=== PATIENT | male | born 1975 | race Caucasian/White ===

== ENCOUNTER 2020-04-04 15:08 | Observation (INO) | payer SELFPAY ==
--- NOTE | ~2020-04-04 | CT_ITS ---
EXAMINATION: CT abdomen pelvis w con DATE: 04/04/2020 20:51 INDICATION: Pelvic abscess. TECHNIQUE: Computed tomography (CT) of the abdomen and pelvis was performed with 100 mL Omnipaque 350 intravenous contrast. Automated exposure control and iterative reconstruction technique were employe d. The dose-length product was 3528 mGy-cm. COMPARISON: None. FINDINGS: The visualized portions of the lung bases are clear without pneumonia or pleural effusion. There is a pneumatocele in left lower lobe. The heart size is normal. No pericardial effusion. The li mio, gallbladder, spleen, pancreas, adrenal glands, and kidneys are normal. There are no dilated loop s of bowel. The appendix is normal. There is subcutaneous fat stranding and skin thickening involving the anterior perineum, consistent with cellulitis. No abscess. There are no pathologically enlarged lymph nodes. There is no free intraperitoneal fluid. There is mild thoracic spondylosis. IMPRESSION: 1. Subcutaneous cellulitis involving the anterior perineum. No abscess. Reviewed, dictated and finalized at location A. NOLOGY TEACHER
[2020-04-04 16:10] VITALS: BP 129/78; PULSE 91; RESP 18; TEMP 36.3; O2SAT 99
[2020-04-04 16:26] LABS: Hematocrit 44.6 % (42.0-52.0); Hemoglobin 15.3 g/dL (14.0-18.0); Mean Corpuscular HGB Conc 34.3 g/dl (32-36); Mean Corpuscular Hemoglobin 30.1 pg (26-34); Mean Corpuscular Volume 87.8 fl (80-100); Platelet Count Result 245 k/mm3 (150-375); Red Blood Count 5.08 M/mm3 (4.6-6.20); Red Cell Distribution Width 13.1 % (11.5-14.5); White Blood Count 21.4 K/mm3 (4.5-10.0)
[2020-04-04 16:37] LABS: Alanine Aminotransferase 26 U/L (4-50); Albumin Level 4.2 g/dL (3.5-5.1); Alkaline Phosphatase 93 U/L (38-126); Anion Gap 7 mmol/L (8-16); Aspartate Amino Transferase 21 U/L (17-59); Bilirubin,Total 0.6 mg/dL (0.2-1.3); Blood Urea Nitrogen 10 mg/dL (9-20); Calcium 9.2 mg/dL (8.4-10.2); Carbon Dioxide 26 mmol/L (22-30); Chloride 99 mmol/L (98-107); Estimated CRCL calculation 202 ml/min; Estimated Glomerular Filt Rate > 60; Glucose 181 mg/dL (75-110); Potassium 4.2 mmol/L (3.4-5.0); Sodium 132 mmol/L (137-145)
[2020-04-04 16:38] LABS: Band Neutrophils Percent 2 % (0-6); Lymphocytes Absolute Manual 3.21 K/mm3 (1.1-4.5); Monocytes Absolute Manual 1.07 K/mm3 (0.1-0.90); Monocytes Percent Manual 5 % (3-9); Neutrophils Absolute Manual 17.12 K/mm3 (1.3-6.7); Neutrophils Percent Manual 78 % (46-73); Total Cells Counted 100
[2020-04-04 16:39] LABS: Atypical Lymphocytes Present; Platelet Estimate Adequate (Adequate)
--- NOTE | 2020-04-04 20:06 | PC.NURSE ---
edema above the penis are 5x10 with tinge drainage
[2020-04-04 20:15] VITALS: BP 148/64; PULSE 94; RESP 20; O2SAT 96
[2020-04-04 20:17] LABS: Lactic Acid Reflex 0.9 mmol/L (0.7-2.1)
--- NOTE | 2020-04-04 20:58 | ED.GENADULT ---
HPI - General Adult General Chief complaint: Urogenital-Male <Piper Mares PA-C - Last Filed: 04/14/20 10:26> Stated complaint: swelling/redness to testicles <Piper Mares PA-C - Last Filed: 04/14/20 10:26> Time Seen by Provider: 04/04/20 19:04 <Piper Mares PA-C - Last Filed: 04/14/20 10:26> Source: patient <RUMA Sheikh Last Filed: 04/14/20 10:26> Mode of arrival: ambulatory <RUMA Sheikh Last Filed: 04/14/20 10:26> Limitations: no limitations <RUMA Sheikh Last Filed: 04/14/20 10:26> History of Present Illness HPI narrative: Patient presents with chief complaint of erythema, pain and drainage to his mons pubis intermittently over the past week. Patient states he has noticed more erythema and swelling and pain to the area. He states he has been draining from under his abdomen intermittently for a week. He states it is not draining any days ago and has since grown in size. Patient is evaluated. Patient states that he states he has had a large abscess to his scrotum in the past which was drained by urology. He states he has not had any fevers or chills, nausea or vomiting. Patient states that he is a smoker. Patient denies chest pain or shortness of breath. <Piper Mares PA-C - Last Filed: 04/14/20 10:26> Related Data Allergies/adverse reactions: Allergies Allergy/AdvReac Type Severity Reaction Status Date / Time No Known Allergies Allergy Verified 04/04/20 16:13 <Piper Mares PA-C - Last Filed: 04/14/20 10:26> Review of Systems Review of Systems: Narrative: CONSTITUTIONAL: Denies fever, chills, or sweats. EYES: Denies visual changes, redness, or discharge. ENT: Denies rhinorrhea, congestion, sore throat, or otalgia. CARDIOVASCULAR: Denies chest pain, palpitations, or edema. RESPIRATORY: Denies cough or dyspnea. GASTROINTESTINAL: Denies abdominal pain, nausea, vomiting, or diarrhea. GENITOURINARY: Denies dysuria or hematuria. SKIN: Reports abscess denies rash or itching. MUSCULOSKELETAL: Denies back pain, joint pain, or myalgia. NEUROLOGIC: Denies headache, numbness, dizziness, or weakness. PSYCHIATRIC: Denies anxiety or depression. <Piper Mares PA-C - Last Filed: 04/14/20 10:26> [facility] Past Medical History Medical History: Medical History (Updated 04/06/20 @ 12:56 by Delisa Santiago PA-C) Marijuana use Morbid obesity Tobacco dependence Type 2 diabetes mellitus <Piper Mares PA-C - Last Filed: 04/14/20 10:26> Surgical History Surgical History: Surgical History Hx of appendectomy <Piper Mares PA-C - Last Filed: 04/14/20 10:26> Social History Social History: Social History (Updated 04/05/20 @ 17:10 by Delisa Santiago PA-C) Social History: Mr. Mina lives in [place] with his mother and son. He works for [employer]. He smokes 2 packs of cigarettes per day and states that he has done so for 20 years. He smokes approximately 2 grams of marijuana per day. He drinks alcohol once every 2 months and last drank on . He wishes to be a full code and he designates his mom, Debbie Mina, as his surrogate medical decision maker. Smoking packs per day: 2 Smoking cigarettes per day: 40.0 Years smoked: 20 Smoking pack-years: 40.00 Smoking status: Former smoker Tobacco type: cigarettes Substance use: current Substance use type: marijuana Other substance usage details: Pt admits to smoking approximately 2 grams of marijuana per day Living arrangements: with family Gender identity (if verbalized by the patient): Male Spiritual care concerns: No <Piper Mares PA-C - Last Filed: 04/14/20 10:26> Exam Narrative: Exam Narrative: GENERAL: Well-appearing, well-nourished, and in no acute distress. Morbidly obese. HEAD: Normocephalic, atraumatic. EYES: PERRLA and EOMI. C
[2020-04-04 21:30] VITALS: BP 126/51; PULSE 98; RESP 20; O2SAT 96
[2020-04-04 22:57] VITALS: BP 148/64; PULSE 92; RESP 20; O2SAT 96
[2020-04-05 00:17] VITALS: BP 118/52; PULSE 98; RESP 20; O2SAT 97
[2020-04-05 00:29] LABS: Glucose Point of Care 262 (65-105)
--- NOTE | 2020-04-05 01:34 | PC.NURSE ---
dr lewis verbal d/c the iv roceph
[2020-04-05] MEDS: SODIUM CHLORIDE 0.9% IV 1,000 ML 125 ML IV CONT ×2 (01:40→12:21)
[2020-04-05 06:00] VITALS: BP 125/58; PULSE 92; RESP 20; TEMP 37.5; O2SAT 96
[2020-04-05 06:03] LABS: Basophils Absolute Auto 0.1 K/mm3 (0.0-0.1); Basophils Percent Auto 0.6 % (0.2-1.2); Eosinophils Absolute Auto 0.2 K/mm3 (0-0.3); Hematocrit 43.1 % (42.0-52.0); Immature Granulocyte Absolute 0.12 K/mm3 (0.00-0.031); Immature Granulocyte Percent A 0.8 % (0-0.5); Lymphocytes Absolute Auto 1.84 K/mm3 (0.9-3.2); Lymphocytes Percent Auto 11.7 % (18.3-44.2); Mean Corpuscular HGB Conc 32.5 g/dl (32-36); Mean Corpuscular Hemoglobin 28.7 pg (26-34); Mean Corpuscular Volume 88.3 fl (80-100); Mean Platelet Volume 9.4 fl (7.4-10.4); Monocytes Absolute Auto 1.3 K/mm3 (0.1-0.6); Neutrophils Absolute Auto 12.2 K/mm3 (1.3-6.7); Neutrophils Percent Auto 77.9 % (45.5-73.1); Platelet Count Result 219 k/mm3 (150-375); Red Blood Count 4.88 M/mm3 (4.6-6.20); White Blood Count 15.7 K/mm3 (4.5-10.0)
[2020-04-05 06:15] LABS: Estimated CRCL calculation 181 ml/min; Estimated Glomerular Filt Rate > 60
[2020-04-05 07:45] LABS: Glucose Point of Care 207 (65-105)
[2020-04-05 11:18] LABS: Anion Gap 9 mmol/L (8-16); Blood Urea Nitrogen 11 mg/dL (9-20); Calcium 8.7 mg/dL (8.4-10.2); Carbon Dioxide 22 mmol/L (22-30); Chloride 103 mmol/L (98-107); Estimated CRCL calculation 181 ml/min; Estimated Glomerular Filt Rate > 60; Glucose 206 mg/dL (75-110); Sodium 134 mmol/L (137-145)
[2020-04-05 11:58] LABS: Glucose Point of Care 275 (65-105)
[2020-04-05 14:00] VITALS: BP 134/65; PULSE 92; RESP 22; TEMP 36.6; O2SAT 99
--- NOTE | 2020-04-05 14:25 | PM.IMHP ---
H&P: HPI History of Present Illness Date/Time: 04/05/20 14:25 Chief Complaint: Skin infection in perineal area Narrative: Ranjan Mina is a 44 year old male with PMH significant for type 2 diabetes mellitus, hx of scrotal abscess, current tobacco dependence with 40 pack-year smoking history, and marijuana dependence who presented to the emergency department 04/04/20 for the evaluation of perineal swelling. He reported that he noticed a small area of swelling and erythema in the perineal area, just below the abdominal pannus, 1 week ago. He took 6 days of keflex that he had leftover at home without improvement. This progressively worsened, extending to cover the whole region of the mons pubis with significant swelling, erythema, and warmth. He noted associated fatigue, fever, and chills. Yesterday, the area started draining purulent and malodorous material from the abdominal fold. The pain worsened which prompted him to proceed to the emergency department. The area is sore and he describes the discomfort as a dull ache. He reports no scrotal swelling or pain and no penile discharge. He has no voiding complaints. He states that his blood sugars tend to run in the 200s at home. He admits that his diet is very poor. He knows that he needs to work on modifying his diet and work towards weight loss. Initial vitals on arrival to the emergency department were stable. WBC was markedly elevated at 21,400 with neutrophil predominance. Lactic acid was normal at 0.9. Sodium was 132. CT abdomen/pelvis demonstrated subcutaneous fat stranding and skin thickening of the anterior perineum consistent with cellulitis without abscess. Blood cultures were obtained and he was treated with IV vancomycin, imipenem, and cefazolin and admitted to the hospitalist service for cellulitis. Today, he notes that the swelling is much better. He still has a bit of pain and thinks this may be a bit worse. Review of Systems Review of Systems: Narrative: Constitutional: Reports fever and chills which abated on Thursday. Reports fatigue. Denies appetite change and reports that his diet is poor and he needs to work on weight loss. Eyes: Denies vision change. No additional eye complaints. ENT: Denies change in hearing, nasal congestion, dysphagia, odynophagia, and sore throat. Cardiovascular: Denies palpitations and chest pain. Denies PND and orthopnea. Denies dyspnea on exertion. Respiratory: Denies cough and shortness of breath. Gastrointestinal: Denies abdominal pain, nausea, and vomiting. Genitourinary: Denies dysuria, frequency, urgency, and hesitancy. Denies penile discharge. Denies scrotal swelling. Musculoskeletal: Denies joint pain and swelling. Denies muscle cramps and weakness. Skin: As above. Neurologic: Denies focal weakness, paresthesias, confusion, and speech change. Endo: Reports frequent thirst. Psychiatric: Denies mood change. Hematologic: Denies easy bruising and bleeding. All systems reviewed & are unremarkable except as noted in HPI and below PMFSH Past Medical History Medical History (Updated 04/05/20 @ 17:15 by Delisa Santiago PA-C) Marijuana use Tobacco dependence Type 2 diabetes mellitus Surgical History Surgical History Hx of appendectomy Social History Social History (Updated 04/05/20 @ 17:10 by Delisa Santiago PA-C) Social History: Mr. Mina lives in [place] with his mother and son. He works for [employer]. He smokes 2 packs of cigarettes per day and states that he has done so for 20 years. He smokes approximately 2 grams of marijuana per day. He drinks alcohol once every 2 months and last drank on . He wishes to be a full code and he designates his mom, Debbie Mina, as his surrogate medical decision maker. Smoking packs per day: 2 Smoking cigarettes per day: 40.0 Years smoked: 20 Smoking pack-years: 40.00 Tobacco type: ci
[2020-04-05 16:45] LABS: Glucose Point of Care 220 (65-105)
--- NOTE | 2020-04-05 17:43 | PC.NURSE ---
Left message for inclusion paraeducator.
[2020-04-05] MEDS: INSULIN ASPART (*BKC) 100 UNITS/ML SUB-Q (18:05)
[2020-04-05] MEDS: ENOXAPARIN 40 MG/0.4 ML SYRINGE SUB-Q (20:02)
[2020-04-05 20:17] LABS: Glucose Point of Care 340 (65-105)
[2020-04-05 21:19] VITALS: BP 134/61; PULSE 95; RESP 18; TEMP 37.7; O2SAT 95
[2020-04-05 22:14] LABS: Glucose Point of Care 364 (65-105)
[2020-04-05 22:22] VITALS: TEMP 37.2
[2020-04-05] MEDS: INSULIN ASPART (*BKC) 100 UNITS/ML 6 UNITS SUB-Q (22:27)
[2020-04-06] MEDS: SODIUM CHLORIDE 0.9% IV 1,000 ML 125 ML IV CONT (02:08)
[2020-04-06 06:00] VITALS: BP 152/84; PULSE 86; RESP 18; TEMP 36.4; O2SAT 95
[2020-04-06 07:54] LABS: Glucose Point of Care 189 (65-105)
[2020-04-06 08:13] LABS: Basophils Absolute Auto 0.1 K/mm3 (0.0-0.1); Basophils Percent Auto 0.5 % (0.2-1.2); Eosinophils Absolute Auto 0.2 K/mm3 (0-0.3); Eosinophils Percent Auto 1.5 % (0-4.4); Hematocrit 42.8 % (42.0-52.0); Hemoglobin 14.1 g/dL (14.0-18.0); Immature Granulocyte Absolute 0.07 K/mm3 (0.00-0.031); Immature Granulocyte Percent A 0.5 % (0-0.5); Lymphocytes Absolute Auto 1.71 K/mm3 (0.9-3.2); Lymphocytes Percent Auto 12.8 % (18.3-44.2); Mean Corpuscular HGB Conc 32.9 g/dl (32-36); Mean Corpuscular Volume 87.9 fl (80-100); Mean Platelet Volume 9.4 fl (7.4-10.4); Monocytes Absolute Auto 0.9 K/mm3 (0.1-0.6); Monocytes Percent Auto 6.9 % (2.6-8.5); Neutrophils Absolute Auto 10.4 K/mm3 (1.3-6.7); Neutrophils Percent Auto 77.8 % (45.5-73.1); Platelet Count Result 228 k/mm3 (150-375); Red Blood Count 4.87 M/mm3 (4.6-6.20); Red Cell Distribution Width 12.9 % (11.5-14.5); White Blood Count 13.4 K/mm3 (4.5-10.0)
[2020-04-06 08:32] LABS: Anion Gap 4 mmol/L (8-16); Blood Urea Nitrogen 9 mg/dL (9-20); Calcium 8.7 mg/dL (8.4-10.2); Carbon Dioxide 26 mmol/L (22-30); Chloride 106 mmol/L (98-107); Estimated CRCL calculation 228 ml/min; Estimated Glomerular Filt Rate > 60; Glucose 192 mg/dL (75-110); Potassium 4.4 mmol/L (3.4-5.0); Sodium 136 mmol/L (137-145)
[2020-04-06 08:40] VITALS: BMI 60.0
[2020-04-06 09:26] LABS: Vancomycin Trough 6.2 ug/mL (10.0-20.0)
[2020-04-06 10:42] LABS: Hemoglobin A1C 7.9 % (<5.7)
[2020-04-06 11:54] LABS: Glucose Point of Care 221 (65-105)
--- NOTE | 2020-04-06 12:36 | PM.IMPN ---
Progress Note: A&P Assessment and Plan (1) Cellulitis of suprapubic region: Code(s): L03.319 - Cellulitis of trunk, unspecified Status: Acute Assessment and Plan: Present for [address] abdomen/pelvis demonstrated subcutaneous fat stranding and skin thickening involving the anterior perineum, consistent with cellulitis without abscess. WBC has improved to 13,400 today from 21,400 on admission. He is afebrile. He is improving. He had low grade temp of 99.9F last night but overall improved clinically. Continue IV vancomycin and imipenem per antibiotic stewardship recommendations Blood cultures demonstrate NGTD Continue to monitor Discharge anticipated for tomorrow if he continues to improve (2) Type 2 diabetes mellitus: Code(s): E11.9 - Type 2 diabetes mellitus without complications Status: Acute Assessment and Plan: Blood sugars are above target and it sounds like blood sugars are running in the 200s at home. Hemoglobin A1c is 7.9%. He is not taking his metformin as prescribed and a 90 day supply lasted 1 year. He needs to resume this on discharge and this was encouraged. Diet change and exercise are imperative. He met with the critical care educator and was provided information for follow-up. He was initially refusing insulin but is receptive at this time while inpatient. Hold metformin while inpatient. Will not plan to increase the dose since he was not taking this regularly as prescribed. Continue ACHS glucose monitoring, sliding scale insulin, and hypoglycemia protocol Good glycemic control is crucial given acute infection Encourage diet changes and exercise Consult recruiter account manager to discuss low carb diet (3) Tobacco dependence: Code(s): F17.200 - Nicotine dependence, unspecified, uncomplicated Status: Acute Assessment and Plan: I again encouraged tobacco cessation with the patient. Adverse effects including adverse cardiovascular outcomes, risk for cancer, overall morbidity and mortality were discussed and he verbalized understanding. I discussed pharmacotherapies to aid in tobacco cessation and he is not interested. He thinks he would like to try to quit cold turkey and he states that he does not need a nicotine patch. He has tried chantix in the past but it gave him very vivid dreams. (4) Marijuana use: Code(s): F12.90 - Cannabis use, unspecified, uncomplicated Status: Acute Assessment and Plan: Continue to encourage cessation. This was discussed again with the patient. (5) Morbid obesity: Code(s): E66.01 - Morbid (severe) obesity due to excess calories Status: Acute Assessment and Plan: Encourage weight loss and exercise. This was discussed with the patient at length today and he will meet with the recruiter account manager as well. Subjective Date/time seen: 04/06/20 12:36 Mr. Mina is a 44 year old male with PMH significant for type 2 diabetes mellitus, hx of scrotal abscess, current tobacco dependence with 40 pack-year smoking history, and marijuana dependence who is seen in follow-up for suprapubic cellulitis. He is doing much better overall and notes significant improvement in his suprapubic swelling and pain. He noted that he expressed the area last night in the shower and there was more drainage. He denies subjective fever and chills. He denies nausea and vomiting. His appetite is good. We had a long discussion regarding his weight and diabetes management as A1c is high at 7.9%. He has not been compliant with metformin and only takes it sporadically with 90 day supply lasting 1 year. Review of Systems Review of Systems: All systems reviewed & are unremarkable except as noted in HPI and below Exam Narrative: Exam Narrative: General: Pleasant, unkempt, well-developed, and morbidly obese (BMI 60) male sitting at the edge of the bed in no acute distress. HEENMT: Normocephalic. Sclera anicteric. EO
[2020-04-06] MEDS: INSULIN ASPART (*BKC) 100 UNITS/ML SUB-Q ×2 (12:49→17:42)
[2020-04-06 14:00] VITALS: BP 136/78; PULSE 82; RESP 18; TEMP 36.2; O2SAT 96
[2020-04-06 17:19] LABS: Glucose Point of Care 202 (65-105)
[2020-04-06 20:49] LABS: Glucose Point of Care 205 (65-105)
[2020-04-06] MEDS: ENOXAPARIN 40 MG/0.4 ML SYRINGE SUB-Q (21:10)
[2020-04-06 22:00] VITALS: BP 137/73; PULSE 90; RESP 18; TEMP 35.9; O2SAT 98
[2020-04-07 06:00] VITALS: BP 136/74; PULSE 86; RESP 18; TEMP 36.1; O2SAT 97
[2020-04-07 06:17] LABS: Basophils Absolute Auto 0.1 K/mm3 (0.0-0.1); Basophils Percent Auto 0.6 % (0.2-1.2); Eosinophils Absolute Auto 0.3 K/mm3 (0-0.3); Eosinophils Percent Auto 2.2 % (0-4.4); Hematocrit 43.3 % (42.0-52.0); Hemoglobin 14.3 g/dL (14.0-18.0); Immature Granulocyte Absolute 0.09 K/mm3 (0.00-0.031); Immature Granulocyte Percent A 0.7 % (0-0.5); Lymphocytes Absolute Auto 1.98 K/mm3 (0.9-3.2); Lymphocytes Percent Auto 16.1 % (18.3-44.2); Mean Corpuscular Hemoglobin 29.4 pg (26-34); Mean Corpuscular Volume 89.1 fl (80-100); Mean Platelet Volume 9.6 fl (7.4-10.4); Monocytes Absolute Auto 0.8 K/mm3 (0.1-0.6); Monocytes Percent Auto 6.2 % (2.6-8.5); Neutrophils Absolute Auto 9.1 K/mm3 (1.3-6.7); Neutrophils Percent Auto 74.2 % (45.5-73.1); Platelet Count Result 243 k/mm3 (150-375); Red Blood Count 4.86 M/mm3 (4.6-6.20); White Blood Count 12.3 K/mm3 (4.5-10.0)
[2020-04-07 06:38] LABS: Anion Gap 7 mmol/L (8-16); Blood Urea Nitrogen 10 mg/dL (9-20); Calcium 8.5 mg/dL (8.4-10.2); Carbon Dioxide 29 mmol/L (22-30); Chloride 102 mmol/L (98-107); Estimated CRCL calculation 229 ml/min; Estimated Glomerular Filt Rate > 60; Glucose 201 mg/dL (75-110); Potassium 4.1 mmol/L (3.4-5.0); Sodium 138 mmol/L (137-145)
[2020-04-07 08:28] LABS: Glucose Point of Care 167 (65-105)
--- NOTE | 2020-04-07 10:08 | PM.DS ---
DS: Admitting Diagnosis Admitting Diagnosis Admitting Diagnosis: Purulent cellulitis without abscess DS: Discharge Diagnosis Discharge Diagnosis (1) Cellulitis of suprapubic region: Code(s): L03.319 - Cellulitis of trunk, unspecified Status: Acute Assessment and Plan: Discharge Summary (Date of service 04/07/20): Mr. Mina is a 44 year old male with PMH significant for type 2 diabetes mellitus, hx of scrotal abscess, current tobacco dependence with 40 pack-year smoking history, and marijuana dependence who presented to the emergency department 04/04/20 for the evaluation of perineal swelling. He reported that he noticed a small area of swelling and erythema in the perineal area, just below the abdominal pannus, 1 week ago. He took 6 days of keflex that he had leftover at home without improvement. This progressively worsened, extending to cover the whole suprapubic region, with significant swelling, erythema, and warmth. He noted associated fatigue, fever, and chills. The day prior to admission, the area started draining purulent and malodorous material from an opening just below the abdominal fold. The pain worsened which prompted him to proceed to the emergency department. Initial vitals on arrival to the emergency department were stable. WBC was markedly elevated at 21,400 with neutrophil predominance. Lactic acid was normal at 0.9. Sodium was 132. CT abdomen/pelvis demonstrated subcutaneous fat stranding and skin thickening of the anterior perineum consistent with cellulitis without abscess. Blood cultures were obtained and he was treated with IV vancomycin, imipenem, and cefazolin and admitted to the hospitalist service for cellulitis. IV cefazolin was discontinued and IV vancomycin and imipenem were continued per the antibiotic stewardship guidelines. His erythema, swelling, pain, and induration improved significantly. WBC improved and his fever abated. Wound culture was obtained from the area which was draining and preliminary results show gram positive cocci in clusters with final results pending on discharge and will be followed. Preliminary blood cultures demonstrated NGTD and will be followed. He felt significantly better and requested discharge. He was no longer requiring inpatient care. He was treated empirically for MRSA on discharge with bactrim given purulent cellulitis without abscess to complete a total of 10 days of antibiotic therapy. He was advised to see Dr. Garcia within 1 week after discharge to ensure continued improvement. I discussed that it is imperative he get his diabetes under control and discussed risks of recurrent infection among other risks of untreated diabetes. Worrisome signs and symptoms which would warrant return to the emergency department were discussed and he verbalized understanding. He was discharged in hemodynamically stable condition on the afternoon of 03/07/20. (2) Type 2 diabetes mellitus: Code(s): E11.9 - Type 2 diabetes mellitus without complications Status: Acute Assessment and Plan: Blood sugars were above target. Hemoglobin A1c was 7.9%. He is not taking his metformin as prescribed and a 90 day supply lasted 1 year. Since he was not taking his metformin, I did not increase his dose. He was prescribed a 30 day supply and will need to follow-up with Dr. Garcia. Diet change and exercise are imperative and this was encouraged. He met with the certified diabetes educator and was provided information for follow-up. (3) Tobacco dependence: Code(s): F17.200 - Nicotine dependence, unspecified, uncomplicated Status: Acute Assessment and Plan: I encouraged tobacco cessation with the patient and this was discussed daily for 6-10 minutes each day. Adverse effects including adverse cardiovascular outcomes, risk for cancer, overall morbidity and mortality were discussed and he verbalized understanding. I discussed pharmacotherapies to aid in tobacco cessation and he is not intere
--- NOTE | 2020-04-11 11:27 | PC.NURSE ---
Wound cx shows normal skin tito
== END 2020-04-07 11:00 | disposition home or self-care (01) ==
LOC: ANHED 23:55 → ANH3MEDSUR 04-05 06:58
PROVIDERS: Physician Assistant; Admitting Provider Family Medicine; Emergency Provider Emergency Medicine; PCP Internal Medicine; Visit Provider Internal Medicine
DX: L03.319 Cellulitis of trunk, unspecified (principal); E11.9 Type 2 diabetes mellitus without complications; Z79.84 Long term (current) use of oral hypoglycemic drugs; F17.210 Nicotine dependence, cigarettes, uncomplicated; F12.20 Cannabis dependence, uncomplicated; E66.01 Morbid (severe) obesity due to excess calories; Z68.44 Body mass index [BMI] 60.0-69.9, adult; Z91.14 Patient's other noncompliance with medication regimen
CPT/HCPCS: 36415; 74177; 80048; 80053; 80202; 82565; 82948; 83036; 83605; 83735; 85025; 87040; 87070; 87205; 96361; 96365; 96366; 96367; 96372; 96374; 96375; 99285; G0378; G0379; J0131; J0690; J0743; J1650; J1815; J3370; J7030; Q9967

== ENCOUNTER 2021-03-06 07:24 | Emergency (ER) | payer SELFPAY ==
--- NOTE | ~2021-03-06 | CT_ITS ---
EXAMINATION: CT abdomen pelvis wo con DATE: 03/06/2021 10:57 INDICATION: Epigastric abdominal pain. TECHNIQUE: Computed tomography (CT) of the abdomen and pelvis was performed without intravenous contr ast. Automated exposure control and iterative reconstruction technique were employed. The dose-length product was 1681.83 mGy-cm. COMPARISON: CT abdomen and pelvis 04/04/2020 FINDINGS: The visualized portions of the lung bases demonstrate a small pneumatocele in left lower lo be. No pleural effusion. The heart size is normal. No pericardial effusion. There is diffuse hepatic steatosis. The gallbladder is normal. There is chronic mild splenomegaly, which may be secondary to o besity. The pancreas and right adrenal gland are normal. There is a chronic 14 mm mass in left adrena l gland measuring soft tissue attenuation, likely an adenoma. The kidneys are normal. There is no uro lithiasis. There are no dilated loops of bowel. There are changes of appendectomy. There are no patho logically enlarged lymph nodes. There is no free intraperitoneal fluid. There is mild thoracolumbar s pondylosis. IMPRESSION: 1. Diffuse hepatic steatosis. 2. Chronic mild splenomegaly, which may be secondary to obesity. Reviewed, dictated and finalized at location A. AGENT
[2021-03-06 07:29] VITALS: BP 135/95; PULSE 82; RESP 22; TEMP 36.4; O2SAT 97
--- NOTE | 2021-03-06 07:43 | ECG_ITS ---
Measurements Intervals [place]ons Rate: 78 P: 60 ME: 171 QRS: 29 QRSD: 85 T: 29 QT: 363 QTc: 415 Interpretive Statements SINUS RHYTHM POSSIBLE LEFT ATRIAL ENLARGEMENT LOW QRS VOLTAGE IN PRECORDIAL LEADS BASELINE ARTIFACT- I, III, AVR, AVL, AVF, V6 BORDERLINE ECG Electronically Signed On 03-06-2021 7:58:27 STUDENT FINANCE ADVISOR by Naren Wilhelm D.O.
[2021-03-06 08:06] LABS: Basophils Percent Auto 0.2 % (0.2-1.2); Eosinophils Percent Auto 0.1 % (0-4.4); Hematocrit 50.8 % (42.0-52.0); Hemoglobin 17.5 g/dL (14.0-18.0); Immature Granulocyte Absolute 0.06 K/mm3 (0.00-0.031); Immature Granulocyte Percent A 0.4 % (0-0.5); Lymphocytes Absolute Auto 1.56 K/mm3 (0.9-3.2); Lymphocytes Percent Auto 11.2 % (18.3-44.2); Mean Corpuscular HGB Conc 34.4 g/dl (32-36); Mean Corpuscular Hemoglobin 30.2 pg (26-34); Mean Corpuscular Volume 87.7 fl (80-100); Mean Platelet Volume 9.5 fl (7.4-10.4); Monocytes Absolute Auto 0.7 K/mm3 (0.1-0.6); Neutrophils Absolute Auto 11.5 K/mm3 (1.3-6.7); Neutrophils Percent Auto 83.1 % (45.5-73.1); Platelet Count Result 246 k/mm3 (150-375); Red Blood Count 5.79 M/mm3 (4.6-6.20); White Blood Count 13.9 K/mm3 (4.5-10.0)
[2021-03-06 08:30] LABS: Alanine Aminotransferase 42 U/L (4-50); Albumin Level 4.4 g/dL (3.5-5.1); Alkaline Phosphatase 90 U/L (38-126); Anion Gap 13 mmol/L (8-16); Aspartate Amino Transferase 33 U/L (17-59); Bilirubin,Total 0.6 mg/dL (0.2-1.3); Blood Urea Nitrogen 12 mg/dL (9-20); Calcium 9.5 mg/dL (8.4-10.2); Carbon Dioxide 24 mmol/L (22-30); Chloride 98 mmol/L (98-107); Estimated CRCL calculation 197 ml/min; Estimated Glomerular Filt Rate > 60; Glucose 222 mg/dL (65-110); Lipase 28 U/L (23-300); Potassium 4.2 mmol/L (3.4-5.0); Sodium 135 mmol/L (137-145)
--- NOTE | 2021-03-06 08:38 | ED.NAVMDI ---
HPI - Nausea/Vomiting/Diarrhea General Chief complaint: Nausea/Vomiting/Diarrhea Stated complaint: N/V/D Time Seen by Provider: 03/06/21 08:21 Source: patient Mode of arrival: ambulatory Limitations: no limitations History of Present Illness HPI Narrative: 45-year-old male Patient says that after eating Romanian food Thursday night, which is 3 days ago, she had nausea vomiting followed by diarrhea He has not eaten very much since The diarrhea has subsided somewhat, he estimates he went 3 or 4 times yesterday but has not had a a loose stool yet today However now he is complaining of a burning upper abdominal/epigastric pain No fever Related Data Allergies Allergy/AdvReac Type Severity Reaction Status Date / Time No Known Allergies Allergy Verified 03/06/21 07:41 [facility] Past Medical History Medical History (Updated 03/06/21 @ 11:21 by Trae Hughes MD) Marijuana use Morbid obesity Tobacco dependence Type 2 diabetes mellitus Surgical History Surgical History Hx of appendectomy Social History Social History (Updated 04/05/20 @ 17:10 by Delisa Santiago, RUMA) Social History: Mr. Mina lives in [place] with his mother and son. He works for [employer]. He smokes 2 packs of cigarettes per day and states that he has done so for 20 years. He smokes approximately 2 grams of marijuana per day. He drinks alcohol once every 2 months and last drank on . He wishes to be a full code and he designates his mom, Debbie Mina, as his surrogate medical decision maker. Smoking packs per day: 2 Smoking cigarettes per day: 40.0 Years smoked: 20 Smoking pack-years: 40.00 Smoking status: Former smoker Tobacco type: cigarettes Substance use: current Substance use type: marijuana Other substance usage details: Pt admits to smoking approximately 2 grams of marijuana per day Gender identity (if verbalized by the patient): Male Spiritual care concerns: No Course Vital Signs Vital signs: Vital Signs Temperature 36.4 C 03/06/21 07:29 Pulse Rate 82 03/06/21 07:29 Respiratory Rate 22 H 03/06/21 07:29 Blood Pressure 135/95 H 03/06/21 07:29 Pulse Oximetry 97 03/06/21 07:29 Temperature 36.4 C 03/06/21 07:29 Pulse Rate 82 03/06/21 07:29 Respiratory Rate 22 H 03/06/21 07:29 Blood Pressure 135/95 H 03/06/21 07:29 Pulse Oximetry 97 03/06/21 07:29 MDM - Nausea/Vomiting/Diarrhea Lab Data Attestation: I reviewed the patient's lab results. Result diagrams: 03/06/21 07:50 03/06/21 07:49 Labs: Lab Results 03/06/21 03/06/21 03/06/21 Range/Units 07:49 07:49 07:50 WBC 13.9 H (4.5-10.0) K/mm3 RBC 5.79 (4.6-6.20) M/mm3 Hgb 17.5 D (14.0-18.0) g/dL Hct 50.8 (42.0-52.0) % MCV 87.7 (80-100) fl MCH 30.2 (26-34) pg MCHC 34.4 (32-36) g/dl RDW 13.0 (11.5-14.5) % Plt Count 246 (150-375) k/mm3 MPV 9.5 (7.4-10.4) fl Immature Gran % (Auto) 0.4 (0-0.5) % Neut % (Auto) 83.1 H (45.5-73.1) % Lymph % (Auto) 11.2 L (18.3-44.2) % Pine % (Auto) 5.0 (2.6-8.5) % Eos % (Auto) 0.1 (0-4.4) % Baso % (Auto) 0.2 (0.2-1.2) % Lymph # (Auto) 1.56 (0.9-3.2) K/mm3 Pine # (Auto) 0.7 H (0.1-0.6) K/mm3 Eos # (Auto) 0.0 (0-0.3) K/mm3 Baso # (Auto) 0.0 (0.0-0.1) K/mm3 Abs Immat Gran (auto) 0.06 H (0.00-0.031) K/mm3 Absolute Neuts (auto) 11.5 H (1.3-6.7) K/mm3 Absolute Nucleated RBC 0.0 (0.0-0.012) K/mm3 Nucleated RBC % 0.0 (0.0-0.2) % Sodium 135 L (137-145) mmol/L Potassium 4.2 (3.4-5.0) mmol/L Chloride 98 (98-107) mmol/L Carbon Dioxide 24 (22-30) mmol/L Anion Gap 13 (8-16) mmol/L BUN 12 (9-20) mg/dL Creatinine 0.80 (0.7-1.3) mg/dL Estim Creat Clear Calc 197 ml/min Estimated GFR > 60 (59 - ) Glucose 222 H
[2021-03-06] MEDS: LACTATED RINGERS 1,000 ML 999 ML IV CONT (09:05)
[2021-03-06] MEDS: ONDANSETRON INJ 4 MG/2 ML VIAL IV PUSH (09:06)
[2021-03-06] MEDS: BELLADONNA ALK/PHENOB ELIX 10 ML, MAG HYDROX/ALUMINUM HYD/SIMETH 30 ML, LIDOCAINE HCL 2... PO (09:06)
[2021-03-06 09:09] LABS: Troponin I < 0.012 ng/mL (0.000-0.034)
[2021-03-06 09:26] LABS: Add Urine Microscopic? YES; Amorphous Sediment Urine Few; Appearance Urine Turbid (Clear); Bilirubin Urine Negative (Negative); Blood Urine 1+ (Negative); Color Urine Yellow (Yellow); Glucose Urine UA 1+ mg/dL (Negative); Ketones Urine Negative (Negative); Leukocyte Esterase Ur Negative LEU/UL (Negative); Mucus Urine Few /lpf; Nitrate Urine Negative (Negative); Protein Urine 3+ mg/dL (Negative); Specific Grav Ur 1.029 (1.001-1.035); Urobilinogen Urine Negative mg/dL (<2.0)
== END 2021-03-06 11:48 | disposition home or self-care (01) ==
PROVIDERS: Emergency Provider Emergency Medicine; PCP Internal Medicine
DX: R11.2 Nausea with vomiting, unspecified (principal); R19.7 Diarrhea, unspecified; E11.9 Type 2 diabetes mellitus without complications; E66.01 Morbid (severe) obesity due to excess calories; Z68.43 Body mass index [BMI] 50.0-59.9, adult; F17.210 Nicotine dependence, cigarettes, uncomplicated; K76.0 Fatty (change of) liver, not elsewhere classified; R16.1 Splenomegaly, not elsewhere classified; Z79.84 Long term (current) use of oral hypoglycemic drugs
CPT/HCPCS: 36415; 74176; 80053; 81001; 83690; 84484; 85025; 93005; 96361; 96374; 99284; A9270; J2405; J7120

== ENCOUNTER 2021-06-10 10:41 | Emergency (ER) | payer SELFPAY ==
--- NOTE | ~2021-06-10 | XR_ITS ---
EXAMINATION: XR chest 2V DATE: 06/10/2021 11:05 INDICATION: Congestion. TECHNIQUE: Frontal and lateral views of the chest were obtained on 3 radiographs. COMPARISON: CT abdomen and pelvis 03/06/2021 FINDINGS: Sensitivity is decreased by obesity. There is no pneumonia, pleural effusion, or pneumothor ax. The heart size is normal. IMPRESSION: 1. No acute cardiopulmonary disease. Reviewed, dictated and finalized at location B.
--- NOTE | 2021-06-10 10:50 | ED.URI ---
HPI - URI/Sore Throat General Chief Complaint: Upper Respiratory Infection Stated Complaint: Congestion Time Seen by Provider: 06/10/21 10:51 Source: patient, family, RN notes reviewed and old records reviewed Mode of arrival: ambulatory Limitations: no limitations History of Present Illness HPI Narrative: 45-year-old male presents to the [facility] with complaints of shortness of breath, hurts to breathe and intermittent, and family member that was diagnosed and admitted to the hospital. Has a history of smoking, currently a 2 pack-a-day smoker. Reports wheezing, chest congestion but denies chest pain. Denies fevers, nausea vomiting or diarrhea. Denies nasal congestion History of bronchitis as well Related Data Allergies Allergy/AdvReac Type Severity Reaction Status Date / Time No Known Allergies Allergy Verified 03/06/21 07:41 Review of Systems Review of Systems: All systems reviewed & are unremarkable except as noted in HPI and below Constitutional: Constitutional: Reports no additional constitutional complaints, Denies chills, Denies fever(s) and Denies headache(s) Eyes: Eyes: Reports no additional eye complaints ENT: Reports as per HPI, Denies vertigo, Denies dizziness, Denies headache(s), Denies nasal congestion and Denies sore throat Cardiovascular: Cardiovascular: Reports no additional cardiovascular complaints, Denies chest pain, Denies syncope, Denies rapid heart rate and Denies dyspnea Respiratory: Respiratory: Reports as per HPI, Reports chest congestion, Denies cough, Reports dyspnea and Reports wheezing Gastrointestinal: Gastrointestinal: Reports no additional gastrointestinal complaints, Denies abdominal pain, Denies diarrhea, Denies nausea and Denies vomiting Musculoskeletal: Musculoskeletal: Reports no additional musculoskeletal complaints and Denies numbness Integumentary/Breasts: Skin/Breast: Reports system reviewed and no additional complaints, except as docu Neurologic: Reports system reviewed and no additional complaints, except as documented, Denies vertigo, Denies dizziness, Denies syncope, Denies headache(s), Denies focal weakness and Denies numbness Psychiatric: Psychiatric: Reports no additional psychiatric complaints Allergic/Immunologic: Allergic/Immunologic: Reports no additional allergic/immunologic complaints and Denies wheezing PMFSH Past Medical History Medical History Marijuana use Morbid obesity Tobacco dependence Type 2 diabetes mellitus Surgical History Surgical History Hx of appendectomy Social History Social History Social History: Mr. Mina lives in [place] with his mother and son. He works for [email or web address]. He smokes 2 packs of cigarettes per day and states that he has done so for 20 years. He smokes approximately 2 grams of marijuana per day. He drinks alcohol once every 2 months and last drank on . He wishes to be a full code and he designates his mom, Debbie Mina, as his surrogate medical decision maker. Smoking packs per day: 2 Smoking cigarettes per day: 40.0 Years smoked: 20 Smoking pack-years: 40.00 Smoking status: Former smoker Tobacco type: cigarettes Substance use: current Substance use type: marijuana Other substance usage details: Pt admits to smoking approximately 2 grams of marijuana per day Gender identity (if verbalized by the patient): Male Spiritual care concerns: No Comments At the time of my signature, I reviewed and agree with the nursing past medical, surgical, social, and family history. There is no relevant family history pertinent to the patient complaint. Exam Const: General: cooperative, healthy appearing, no acute distress, well developed and alert Nutritional Appearance: well nourished and obese morbidly obe
[2021-06-10 10:56] VITALS: BP 151/67; PULSE 78; RESP 20; TEMP 36.4; O2SAT 100
[2021-06-10] MEDS: IPRATROPIUM BR 0.02% INH SOLN 0.5 MG/2.5 ML VIAL INHALATION (11:04)
[2021-06-10] MEDS: ALBUTEROL SULFATE NEB 2.5 MG/3 ML INH INHALATION (11:04)
== END 2021-06-10 11:45 | disposition home or self-care (01) ==
PROVIDERS: Emergency Provider Nurse Practitioner; PCP Internal Medicine
DX: J40 Bronchitis, not specified as acute or chronic (principal); E11.9 Type 2 diabetes mellitus without complications; Z87.891 Personal history of nicotine dependence
CPT/HCPCS: 71046; 94640; 99213; G0463

== ENCOUNTER 2021-07-12 08:02 | Emergency (ER) | payer SELFPAY ==
--- NOTE | 2021-07-12 08:05 | ED.URI ---
HPI - URI/Sore Throat General Chief Complaint: Upper Respiratory Infection Stated Complaint: Shortness of Breath Source: patient, RN notes reviewed and old records reviewed Mode of arrival: ambulatory Limitations: no limitations History of Present Illness HPI Narrative: 45-year-old male presents to the [facility] with complaints of shortness of breath. Patient was seen a month ago with similar complaints. Has had a sick exposure, states that last weekend his sister was coughing up for everybody. But he developed cough and wheezing. Denies any chest pain or abdominal pain. States he normally has a nebulizer machine but his dog ate his tubing. Symptoms x3 days Morbid obesity Pertinent past history: asthma Related Data Allergies Allergy/AdvReac Type Severity Reaction Status Date / Time No Known Allergies Allergy Verified 07/12/21 08:12 Review of Systems Review of Systems: All systems reviewed & are unremarkable except as noted in HPI and below Constitutional: Constitutional: Reports no additional constitutional complaints, Denies chills and Denies fever(s) Eyes: Eyes: Reports no additional eye complaints ENT: Reports system reviewed and no additional complaints, except as documented Cardiovascular: Cardiovascular: Reports no additional cardiovascular complaints Respiratory: Respiratory: Reports as per HPI, Reports chest congestion, Reports cough, Reports dyspnea and Reports wheezing Gastrointestinal: Gastrointestinal: Reports no additional gastrointestinal complaints Musculoskeletal: Musculoskeletal: Reports no additional musculoskeletal complaints Integumentary/Breasts: Skin/Breast: Reports system reviewed and no additional complaints, except as docu Neurologic: Reports system reviewed and no additional complaints, except as documented Psychiatric: Psychiatric: Reports no additional psychiatric complaints Allergic/Immunologic: Allergic/Immunologic: Reports no additional allergic/immunologic complaints [facility] Past Medical History Medical History Marijuana use Morbid obesity Tobacco dependence Type 2 diabetes mellitus Surgical History Surgical History Hx of appendectomy Social History Social History Social History: Mr. Mina lives in [place] with his mother and son. He works for [employer]. He smokes 2 packs of cigarettes per day and states that he has done so for 20 years. He smokes approximately 2 grams of marijuana per day. He drinks alcohol once every 2 months and last drank on . He wishes to be a full code and he designates his mom, Debbie Mina, as his surrogate medical decision maker. Smoking packs per day: 2 Smoking cigarettes per day: 40.0 Years smoked: 20 Smoking pack-years: 40.00 Smoking status: Former smoker Tobacco type: cigarettes Substance use: current Substance use type: marijuana Other substance usage details: Pt admits to smoking approximately 2 grams of marijuana per day Gender identity (if verbalized by the patient): Male Spiritual care concerns: No Comments At the time of my signature, I reviewed and agree with the nursing past medical, surgical, social, and family history. There is no relevant family history pertinent to the patient complaint. Exam Const: General: no acute distress, alert and ill appearing acutely (Mild) Nutritional Appearance: well nourished and obese morbidly obese Orientation/consciousness: patient oriented x3 Limitations: no limitations HENMT: Head: normal to inspection Ears: external ears normal Eyes: Pupils: Equal, round and reactive pupils present Neck: Neck: normal visual inspection, no lymphadenopathy and no meningeal signs Chest: Chest palpation & inspection: normal inspection of the chest Resp: Effort & Inspection: nor
[2021-07-12 08:12] VITALS: BP 157/86; PULSE 78; RESP 20; TEMP 36.3; O2SAT 98
[2021-07-12] MEDS: ALBUTEROL SULFATE NEB 2.5 MG/3 ML INH INHALATION (08:26)
[2021-07-12] MEDS: IPRATROPIUM BR 0.02% INH SOLN 0.5 MG/2.5 ML VIAL INHALATION (08:27)
[2021-07-12 08:31] VITALS: BP 157/86; PULSE 78; RESP 20; TEMP 36.3; O2SAT 98
[2021-07-12 08:40] VITALS: PULSE 78; RESP 20; O2SAT 98
[2021-07-12 09:05] VITALS: PULSE 84; RESP 19; O2SAT 98
== END 2021-07-12 09:18 | disposition home or self-care (01) ==
PROVIDERS: Emergency Provider Nurse Practitioner; PCP Internal Medicine
DX: J40 Bronchitis, not specified as acute or chronic (principal); Z20.822 Contact with and (suspected) exposure to COVID-19; E66.01 Morbid (severe) obesity due to excess calories; Z68.43 Body mass index [BMI] 50.0-59.9, adult; F17.210 Nicotine dependence, cigarettes, uncomplicated
CPT/HCPCS: 87426; 87804; 99213; C9803; G0463

== ENCOUNTER 2021-11-04 16:51 | Emergency (ER) | payer SELFPAY ==
[2021-11-04 17:22] VITALS: BP 187/73; PULSE 98; RESP 22; TEMP 37.3; O2SAT 98
--- NOTE | 2021-11-04 18:22 | ED.SKABFB ---
HPI - Skin/Abscess/Foreign Bdy General Chief complaint: Skin/Abscess/Foreign Body Stated complaint: Lumps,Bumps Time Seen by Provider: 11/04/21 18:22 Source: patient and RN notes reviewed Mode of arrival: ambulatory Limitations: dementia History of Present Illness HPI narrative: 45-year-old male with history of diabetes presents with concern for infection to his right forearm. He reports he had red tender bump that has gotten larger, more red, hard and the redness is spreading of his arm. He denies malaise, chills, fever. He reports history of cellulitis infections that he was hospitalized for. He reports he was picking at this wound. MD complaint: abscess/boil Related Data Allergies Allergy/AdvReac Type Severity Reaction Status Date / Time No Known Allergies Allergy Verified 11/04/21 17:55 Review of Systems Review of Systems: CONSTITUTIONAL: Denies malaise, chills, sweats, or fever. EYES: Denies redness, or discharge. ENT: Denies rhinorrhea, congestion, swollen lips, swollen tongue CARDIOVASCULAR: Denies chest pain, palpitations, or edema. RESPIRATORY: Denies cough or dyspnea. GASTROINTESTINAL: Denies abdominal pain, nausea, vomiting SKIN: Reports redness, swelling, tenderness to the right forearm. Denies purulent drainage, bullae, numbness, pain beyond proportion MUSCULOSKELETAL: Denies joint pain or myalgia. NEUROLOGIC: Denies headache. All systems reviewed & are unremarkable except as noted in HPI and below PMFSH Past Medical History Medical History Marijuana use Morbid obesity Tobacco dependence Type 2 diabetes mellitus Surgical History Surgical History Hx of appendectomy Social History Social History Social History: Mr. Mina lives in [place] with his mother and son. He works for [employer]. He smokes 2 packs of cigarettes per day and states that he has done so for 20 years. He smokes approximately 2 grams of marijuana per day. He drinks alcohol once every 2 months and last drank on . He wishes to be a full code and he designates his mom, Debbie Mina, as his surrogate medical decision maker. Smoking packs per day: 2 Smoking cigarettes per day: 40.0 Years smoked: 20 Smoking pack-years: 40.00 Smoking status: Former smoker Tobacco type: cigarettes Substance use: current Substance use type: marijuana Other substance usage details: Pt admits to smoking approximately 2 grams of marijuana per day Gender identity (if verbalized by the patient): Male Spiritual care concerns: No Comments At time of signature, agree with nursing past medical, surgical, social and family history. There is no relevant family history pertinent to the presenting complaint Exam Narrative: GENERAL: Well-appearing, well-nourished, and in no acute distress. HEAD: Normocephalic, atraumatic. EYES: PERRLA, conjunctivae clear ENT: Mucous membranes moist. NECK: Supple. No lymphadenopathy CHEST: Clear to auscultation. No respiratory distress. HEART: Regular rate and rhythm. SKIN: Warm, dry. 2 cm raised erythematous indurated area with central scab surrounded by approximately 20 cm of erythema,noted to the right forearm. No bullae, necrosis, ecchymosis, crepitus noted. NEURO: Alert and oriented x3. PSYCH: Normal mood and affect Course Course Emergency Course: Patient is aware of diagnosis, understands and agrees to treatment plan. Anticipatory guidance given. Patient agrees to follow-up as directed and is aware of reasons to seek care at the emergency department. Portions of this record may have been created with voice recognition software Level of Care: Express Care Visit Vital Signs Vital signs: Vital Signs Temperature 99.1 F 11/04/21 17:22 Pulse Rate 98 11/04/21 17:22 Respiratory Rate 22 H 09
== END 2021-11-04 18:35 | disposition home or self-care (01) ==
PROVIDERS: Emergency Provider Nurse Practitioner; PCP Internal Medicine
DX: L03.113 Cellulitis of right upper limb (principal); E11.9 Type 2 diabetes mellitus without complications; E66.01 Morbid (severe) obesity due to excess calories; Z68.43 Body mass index [BMI] 50.0-59.9, adult; Z87.891 Personal history of nicotine dependence; F12.90 Cannabis use, unspecified, uncomplicated
CPT/HCPCS: 99213; G0463

== ENCOUNTER 2022-11-24 09:55 | Emergency (ER) | payer OTHER, SELFPAY ==
[2022-11-24 10:02] VITALS: BP 160/85; PULSE 72; RESP 20; TEMP 36.2; O2SAT 99
--- NOTE | 2022-11-24 10:15 | ED.ABDPAIN ---
HPI - Abdominal Pain General Chief Complaint: Abdominal Pain Stated Complaint: stomach pain Source: patient Mode of arrival: ambulatory Limitations: no limitations History of Present Illness HPI narrative: 46-year-old male presents to [facility] with complaints of upper abdominal pain with for the past 2 days, nausea, vomiting and diarrhea. Patient reports that his pain became severe this morning. Patient is diabetic But he reports that he has not checked his blood sugar in the past 2 weeks. patient reports as last episode of vomiting was this morning. Patient denies sick contacts. Patient denies patient travel. Patient is a smoker MD elicited complaint: abdominal pain Onset (ago): day(s) (2) Location: epigastric Severity: severe Pain scale (0-10): 8 Radiation: epigastric Associated symptoms: nausea, vomiting and diarrhea Related Data Home Medications Medication Instructions Recorded Confirmed pantoprazole 40 mg tablet,delayed mg PO 11/24/22 release testosterone cypionate 200 mg/mL mg 11/24/22 intramuscular oil tirzepatide 5 mg/0.5 mL mg subcut 11/24/22 subcutaneous pen injector (Marlin) Allergies Allergy/AdvReac Type Severity Reaction Status Date / Time No Known Allergies Allergy Verified 11/24/22 09:56 Review of Systems Constitutional: Constitutional: Denies chills, Denies fatigue, Denies fever(s) and Denies weakness ENT: Denies vertigo and Denies dizziness Cardiovascular: Cardiovascular: Denies chest pain Respiratory: Respiratory: Denies cough, Denies dyspnea and Denies wheezing Gastrointestinal: Gastrointestinal: Reports abdominal pain, Denies bloating, Denies constipation, Denies heartburn, Reports diarrhea, Reports nausea and Reports vomiting Musculoskeletal: Musculoskeletal: Denies arthralgias and Denies joint swelling Integumentary/Breasts: Skin/Breast: Denies pruritus, Denies erythema and Denies rash Neurologic: Denies dizziness, Denies syncope and Denies headache(s) [facility] Past Medical History Medical History Marijuana use Morbid obesity Tobacco dependence Type 2 diabetes mellitus Surgical History Surgical History Hx of appendectomy Social History Social History Social History: Mr. Mina lives in [place] with his mother and son. He works for [employer]. He smokes 2 packs of cigarettes per day and states that he has done so for 20 years. He smokes approximately 2 grams of marijuana per day. He drinks alcohol once every 2 months and last drank on . He wishes to be a full code and he designates his mom, Debbie Mina, as his surrogate medical decision maker. Smoking packs per day: 2 Smoking cigarettes per day: 40.0 Years smoked: 20 Smoking pack-years: 40.00 Smoking status: Former smoker Tobacco type: cigarettes Substance use: current Substance use type: marijuana Other substance usage details: Pt admits to smoking approximately 2 grams of marijuana per day Living arrangements: with family Gender identity (if verbalized by the patient): Male Spiritual care concerns: No Comments At time of signature, I agree with nursing past medical, surgical, social and family history. There is no relevant family history pertinent to the presenting complaint. Exam Const: General: healthy appearing and ill appearing acutely Nutritional Appearance: well nourished Orientation/consciousness: patient oriented x3 Limitations: no limitations Other: Pt appears in pain HENMT: Head: normal to inspection Eyes: Conjunctivae: conjunctivae normal Neck: Neck: normal visual inspection Resp: Effort & Inspection: normal respiratory effort and not labored Auscultation: clear to auscultation bilaterally, no crackles, no rales, no rhonchi and no wheezes
--- NOTE | 2022-11-24 10:27 | PC.NURSE ---
1000 upon attempt to do accucheck was unable d/t machine. advertising executive aware.
== END 2022-11-24 10:16 | disposition home or self-care (01) ==
PROVIDERS: Emergency Provider Nurse Practitioner Family; PCP Internal Medicine
DX: R10.10 Upper abdominal pain, unspecified (principal); F17.210 Nicotine dependence, cigarettes, uncomplicated; F12.90 Cannabis use, unspecified, uncomplicated; E11.9 Type 2 diabetes mellitus without complications; E66.01 Morbid (severe) obesity due to excess calories; Z68.43 Body mass index [BMI] 50.0-59.9, adult
CPT/HCPCS: 99215; G0463

== ENCOUNTER 2022-11-24 10:39 | Emergency (ER) | payer OTHER, SELFPAY ==
[2022-11-24] VITALS (15 sets, daily range): BP systolic 157–185; BP diastolic 77–105; PULSE 78–81; RESP 18; TEMP 36.6; O2SAT 96–100
--- NOTE | ~2022-11-24 | CT_ITS ---
CT of the Abdomen and Pelvis: Indication: Epigastric pain Technique: 2.5 mm axial scans were obtained through the abdomen and pelvis following intravenous adm inistration of 100 cc of Omnipaque 350. Dose reduction technique was used on this scan by utilizing a utomated exposure control and iterative reconstruction technique. The dose-length product (DLP) was 1 726.52 mGy-cm. COMPARISON: 03/06/2021 Findings: Scans through the lung bases are unremarkable. The liver, spleen, pancreas, gallbladder, adrenals and kidneys are within normal limits. No evidence of aortic aneurysm. No lymphadenopathy. No bowel obstruction or bowel wall thickening. There is no evidence to suggest acute appendicitis. Images through the pelvis were performed. Urinary bladder unremarkable. Prostate gland and seminal ve sicles are unremarkable. No ascites. Impression: No significant abnormalities seen. Reviewed, dictated and finalized at [facility]. Impression: No significant abnormalities seen.
--- NOTE | ~2022-11-24 | XR_ITS ---
Clinical Indication: Wheezing PA and lateral views of the chest: Comparison: 06/10/2021 Findings: The lungs are clear, without evidence of focal consolidation or pleural effusion. Cardiome diastinal silhouette is within normal limits. Bones and soft tissues are unremarkable. Impression: Normal chest. Reviewed, dictated and finalized at location . Impression: Normal chest.
[2022-11-24 11:27] LABS: Basophils Absolute Auto 0.1 K/mm3 (0.0-0.1); Basophils Percent Auto 0.5 % (0.2-1.2); Eosinophils Absolute Auto 0.1 K/mm3 (0-0.3); Eosinophils Percent Auto 0.5 % (0-4.4); Hematocrit 54.9 % (42.0-52.0); Hemoglobin 17.9 g/dL (14.0-18.0); Immature Granulocyte Absolute 0.13 K/mm3 (0.00-0.031); Immature Granulocyte Percent A 0.9 % (0-0.5); Lymphocytes Absolute Auto 1.69 K/mm3 (0.9-3.2); Lymphocytes Percent Auto 11.6 % (18.3-44.2); Mean Corpuscular HGB Conc 32.6 g/dl (32-36); Mean Corpuscular Hemoglobin 29.2 pg (26-34); Mean Corpuscular Volume 89.4 fl (80-100); Mean Platelet Volume 9.8 fl (7.4-10.4); Monocytes Absolute Auto 0.5 K/mm3 (0.1-0.6); Monocytes Percent Auto 3.6 % (2.6-8.5); Neutrophils Absolute Auto 12.1 K/mm3 (1.3-6.7); Neutrophils Percent Auto 82.9 % (45.5-73.1); Platelet Count Result 242 k/mm3 (150-375); Red Blood Count 6.14 M/mm3 (4.6-6.20); White Blood Count 14.6 K/mm3 (4.5-10.0)
[2022-11-24 11:35] LABS: Alanine Aminotransferase 38 U/L (6-50); Albumin Level 4.4 g/dL (3.5-5.1); Alkaline Phosphatase 80 U/L (38-126); Anion Gap 7 mmol/L (8-16); Aspartate Amino Transferase 27 U/L (17-59); Bilirubin,Total 0.7 mg/dL (0.2-1.3); Blood Urea Nitrogen 10 mg/dL (9-20); Calcium 9.2 mg/dL (8.4-10.2); Carbon Dioxide 30 mmol/L (22-30); Chloride 100 mmol/L (98-107); Estimated CRCL calculation 184 ml/min; Estimated Glomerular Filt Rate > 60; Glucose 139 mg/dL (65-110); Potassium 4.1 mmol/L (3.4-5.0); Sodium 137 mmol/L (137-145)
[2022-11-24 11:46] LABS: Troponin I < 0.012 ng/mL (0.000-0.034)
--- NOTE | 2022-11-24 12:35 | ECG_ITS ---
Measurements Intervals [place] Rate: 67 P: 62 NC: 176 QRS: 56 QRSD: 89 T: 40 QT: 391 QTc: 415 Interpretive Statements SINUS RHYTHM WITH SINUS ARRHYTHMIA CANNOT RULE sEPTAL MYOCARDIAL INFARCTION , PROBABLY OLD [40+ ms Q WAVE IN V1/V2] ABNORMAL ECG COMPARED TO ECG 03/06/2021 07:42:34 SINUS ARRHYTHMIA NOW PRESENT Electronically Signed On 11-24-2022 17:08:04 CDT by Kam Hicks M.D.
--- NOTE | 2022-11-24 12:36 | ED.ABDPAIN ---
HPI - Abdominal Pain General Chief Complaint: Abdominal Pain <RUMA Tucker Last Filed: 11/24/22 15:32> Stated Complaint: abd pain x 3 days <RUMA Tucker Last Filed: 11/24/22 15:32> Time Seen by Provider: 11/24/22 12:29 <Miesha Doyle PA-C - Last Filed: 11/24/22 15:32> History of Present Illness HPI narrative: 46 y/o M with a hx of T2DM reports for evaluation for epigastric abdominal pain x3 days with associated n/v/d. Reports the abdominal pain was intermittent and is now constant today. Denies melena, hematochezia, hemoptysis, coffee ground emesis, fever, body aches, chills, cough, dyspnea, chest pain, dysuria or hematuria. Denies aggravating or alleviating factors. States diarrhea is unchanged from his baseline. His glucose has been ~100 at home and he has been taking his medications as directed. <RUMA Tucker Last Filed: 11/24/22 15:32> Related Data Home Medications: Home Medications Medication Instructions Recorded Confirmed pantoprazole 40 mg tablet,delayed mg PO 11/24/22 release testosterone cypionate 200 mg/mL mg 11/24/22 intramuscular oil tirzepatide 5 mg/0.5 mL mg subcut 11/24/22 subcutaneous pen injector (Marlin) <RUMA Tucker Last Filed: 11/24/22 15:32> Allergies/Adverse Reactions: Allergies Allergy/AdvReac Type Severity Reaction Status Date / Time No Known Allergies Allergy Verified 11/24/22 09:56 <RUMA Tucker Last Filed: 11/24/22 15:32> Review of Systems Review of Systems: CONSTITUTIONAL: Denies fever, chills EYES: Denies visual changes, redness, or discharge. ENT: Denies rhinorrhea, congestion, sore throat, or otalgia. CARDIOVASCULAR: Denies chest pain, palpitations, or edema. RESPIRATORY: Denies cough or dyspnea. GASTROINTESTINAL: Denies abdominal pain, nausea, vomiting, or diarrhea. GENITOURINARY: Denies dysuria or hematuria. SKIN: Denies rash or itching. MUSCULOSKELETAL: Denies back pain, joint pain, or myalgia. NEUROLOGIC: Denies headache, numbness, dizziness, or weakness. PSYCHIATRIC: Denies anxiety or depression. <Miesha Doyle PA-C - Last Filed: 11/24/22 15:32> [facility] Past Medical History Medical History: Medical History Marijuana use Morbid obesity Tobacco dependence Type 2 diabetes mellitus <Miesha Doyle PA-C - Last Filed: 11/24/22 15:32> Surgical History Surgical History: Surgical History Hx of appendectomy <Miesha Doyle PA-C - Last Filed: 11/24/22 15:32> Social History Social History: Social History Social History: Mr. Mina lives in [place] with his mother and son. He works for [employer]. He smokes 2 packs of cigarettes per day and states that he has done so for 20 years. He smokes approximately 2 grams of marijuana per day. He drinks alcohol once every 2 months and last drank on . He wishes to be a full code and he designates his mom, Debbie Mina, as his surrogate medical decision maker. Smoking packs per day: 2 Smoking cigarettes per day: 40.0 Years smoked: 20 Smoking pack-years: 40.00 Smoking status: Former smoker Tobacco type: cigarettes Substance use: current Substance use type: marijuana Other substance usage details: Pt admits to smoking approximately 2 grams of marijuana per day Living arrangements: with family Gender identity (if verbalized by the patient): Male Spiritual care concerns: No <Miesha Doyle PA-C - Last Filed: 11/24/22 15:32> Exam Narrative: GENERAL: Uncomfortable appearing, in no acute distress. HEAD: Normocephalic EYES: Normal conjunctiva ENT: Nares clear. Mucous membranes moist. NECK: Supple. CHEST: No respiratory distress. Wheezing thro
[2022-11-24] MEDS: FAMOTIDINE 20 MG/2 ML VIAL IV PUSH (12:41)
[2022-11-24] MEDS: ONDANSETRON INJ 4 MG/2 ML VIAL IV PUSH (12:41)
[2022-11-24 12:45] LABS: Appearance Urine Clear (Clear); Bacteria Urine None Seen /hpf; Bilirubin Urine 2+ (Negative); Blood Urine Negative (Negative); Color Urine Dark Yellow (Yellow); Glucose Urine UA Negative (Negative); Ketones Urine 1+ mg/dL (Negative); Leukocyte Esterase Ur Trace LEU/UL (Negative); Nitrate Urine Negative (Negative); Non Pathogenic Casts 0-2; Protein Urine 3+ mg/dL (Negative); RBC Urine 0-2 /hpf (0-2); Specific Grav Ur 1.034 (1.001-1.035); Squamous Epithelial Cell Urine None seen /hpf (Few); WBC Urine 0-5 /hpf; pH Urine 7.5 (5.0-9.0)
[2022-11-24 12:46] LABS: Add Urine Microscopic? YES
[2022-11-24 13:12] LABS: Lipase 39 U/L (23-300)
[2022-11-24] MEDS: SODIUM CHLORIDE 0.9% IV 1,000 ML 999 ML IV CONT (14:49)
== END 2022-11-24 15:43 | disposition home or self-care (01) ==
PROVIDERS: Emergency Medicine; Physician Assistant; Emergency Provider Emergency Medicine; PCP Internal Medicine
DX: K52.9 Noninfective gastroenteritis and colitis, unspecified (principal); E11.9 Type 2 diabetes mellitus without complications; E66.01 Morbid (severe) obesity due to excess calories; Z68.43 Body mass index [BMI] 50.0-59.9, adult; F17.210 Nicotine dependence, cigarettes, uncomplicated; Z79.85 Long-term (current) use of injectable non-insulin antidiabetic drugs; R94.31 Abnormal electrocardiogram [ECG] [EKG]
CPT/HCPCS: 36415; 71046; 74177; 80053; 81001; 83690; 84484; 85025; 93005; 96361; 96374; 96375; 99284; J2405; J7030; Q9967

== ENCOUNTER 2022-12-09 01:34 | Emergency (ER) | payer OTHER, SELFPAY ==
--- NOTE | ~2022-12-09 | CT_ITS ---
EXAMINATION: CT abdomen pelvis w con DATE: 12/09/2022 06:56 INDICATION: Right upper quadrant abdominal pain. TECHNIQUE: Computed tomography (CT) of the abdomen and pelvis was performed with 100 mL Omnipaque 350 intravenous contrast. Automated exposure control and iterative reconstruction technique were employe d. The dose-length product was 1901.80 mGy-cm. COMPARISON: CT abdomen and pelvis 11/24/2022 FINDINGS: The visualized portions of the lung bases demonstrated minimal atelectasis. There is a pneu matocele in left lower lobe. No pleural effusion. The heart size is normal. No pericardial effusion. The liver is normal. The gallbladder is distended. The spleen, pancreas, and adrenal glands are rianna l. There is cortical thinning of the kidneys. There are no dilated loops of bowel. There are changes of appendectomy. There are no pathologically enlarged lymph nodes. There is no free intraperitoneal f luid. There is mild thoracic and lumbar spondylosis. IMPRESSION: 1. Gallbladder distention, which may be secondary to fasting or acute cholecystitis. Correlate with p hysical exam. Reviewed, dictated and finalized at location E. IMPRESSION: 1. Gallbladder distention, which may be secondary to fasting or acute cholecyst itis. Correlate with physical exam.
--- NOTE | ~2022-12-09 | US_ITS ---
EXAMINATION: US right upper quadrant DATE: 12/09/2022 08:58 INDICATION: Right upper quadrant abdominal pain. TECHNIQUE: Multiple grayscale and Doppler ultrasound images of the abdomen were obtained. COMPARISON: CT abdomen and pelvis 12/09/2022 FINDINGS: The visualized portions of the head and body of the pancreas are normal. The liver is rianna l without focal lesion. There is normal flow in main portal vein. The gallbladder is normal in size. No gallstones or gallbladder wall thickening. There is no sonographic Post sign. The common duct is normal and measures 6 mm. IMPRESSION: 1. Normal right upper quadrant ultrasound. Reviewed, dictated and finalized at location E.
[2022-12-09 01:50] VITALS: BP 174/97; PULSE 80; RESP 15; TEMP 36.1; O2SAT 100
[2022-12-09 04:10] VITALS: BP 172/95; PULSE 86; RESP 17; O2SAT 99
--- NOTE | 2022-12-09 05:45 | ED.GENADULT ---
HPI - General Adult General Chief complaint: Abdominal Pain <Casey Corona MD - Last Filed: 12/09/22 06:57> Stated complaint: abdominal pain <Casey Corona MD - Last Filed: 12/09/22 06:57> Time Seen by Provider: 12/09/22 04:50 <Casey Corona MD - Last Filed: 12/09/22 06:57> History of Present Illness HPI narrative: This is a 46-year-old male presenting ED with complaint chief complaint of abdominal pain, nausea and vomiting. Patient says the pain started 2 days ago. It is a stabbing pain in the epigastric area. Ten out 10 intensity, constant. He experienced Similarpain like this on 11/24. he states that it improved with medications he was provided last time. Patient denies fevers. no chest pain or difficulty breathing. Patient's smokes 1 blunt of marijuana per day. He is also taking Mounjaro for weight loss. <Casey Corona MD - Last Filed: 12/09/22 06:57> Related Data Home medications: Home Medications Medication Instructions Recorded Confirmed pantoprazole 40 mg tablet,delayed mg PO 11/24/22 release testosterone cypionate 200 mg/mL mg 11/24/22 intramuscular oil tirzepatide 5 mg/0.5 mL mg subcut 11/24/22 subcutaneous pen injector (Mounjaro) <Casey Corona MD - Last Filed: 12/09/22 06:57> Allergies/adverse reactions: Allergies Allergy/AdvReac Type Severity Reaction Status Date / Time No Known Allergies Allergy Verified 12/09/22 04:16 <Casey Corona MD - Last Filed: 12/09/22 06:57> [facility] Past Medical History Medical History: Medical History Marijuana use Morbid obesity Tobacco dependence Type 2 diabetes mellitus <Casey Corona MD - Last Filed: 12/09/22 06:57> Surgical History Surgical History: Surgical History Hx of appendectomy <Casey Corona MD - Last Filed: 12/09/22 06:57> Social History Social History: Social History Social History: Mr. Mina lives in [place] with his mother and son. He works for [email or web address]. He smokes 2 packs of cigarettes per day and states that he has done so for 20 years. He smokes approximately 2 grams of marijuana per day. He drinks alcohol once every 2 months and last drank on . He wishes to be a full code and he designates his mom, Debbie Mina, as his surrogate medical decision maker. Smoking packs per day: 2 Smoking cigarettes per day: 40.0 Years smoked: 20 Smoking pack-years: 40.00 Smoking status: Former smoker Tobacco type: cigarettes Substance use: current Substance use type: marijuana Other substance usage details: Pt admits to smoking approximately 2 grams of marijuana per day Living arrangements: with family Gender identity (if verbalized by the patient): Male Spiritual care concerns: No <Casey Corona MD - Last Filed: 12/09/22 06:57> Exam Narrative: APPEARANCE: No apparent distress. Head: atraumatic. EYES: EOMI, NOSE: Atraumatic NECK: Trachea midline RESPIRATORY: No increased rate of breathing CARDIOVASCULAR: RRR, ABDOMINAL: obese with tenderness in the right upper quadrant/epigastric area. No guarding or rebound MUSCULOSKELETAl: No obvious deformities NEURO: Alert. Moving 4/4 extremities SKIN:: Warm, dry. Normal color PSYCHIATRIC: Normal affect point of care right upper quadrant ultrasound was limited due to body habitus. Unable to clearly visualize the gallbladder. <Casey Corona MD - Last Filed: 12/09/22 06:57> Course Course Emergency Course: Repeat exam of the abdomen reveals soft nontender abdomen specifically in the epigastrium and right upper quadrant. Borderline CT scan in regards to cholecystitis but normal ultrasound without stones or pericholecystic cystic fluid or gallbladder wall thickenin
[2022-12-09 05:48] VITALS: BP 167/99; PULSE 76; RESP 17; O2SAT 97
[2022-12-09] MEDS: ONDANSETRON INJ 4 MG/2 ML VIAL IV PUSH (05:50)
[2022-12-09] MEDS: SODIUM CHLORIDE 0.9% IV 1,000 ML 999 ML IV CONT (05:50)
[2022-12-09] MEDS: FAMOTIDINE 20 MG/2 ML VIAL IV PUSH (05:50)
[2022-12-09 06:03] LABS: Basophils Absolute Auto 0.1 K/mm3 (0.0-0.1); Basophils Percent Auto 0.4 % (0.2-1.2); Eosinophils Absolute Auto 0.1 K/mm3 (0-0.3); Eosinophils Percent Auto 0.6 % (0-4.4); Hematocrit 57.2 % (42.0-52.0); Immature Granulocyte Absolute 0.07 K/mm3 (0.00-0.031); Immature Granulocyte Percent A 0.4 % (0-0.5); Lymphocytes Percent Auto 11.7 % (18.3-44.2); Mean Corpuscular HGB Conc 33.2 g/dl (32-36); Mean Corpuscular Hemoglobin 29.4 pg (26-34); Mean Corpuscular Volume 88.5 fl (80-100); Mean Platelet Volume 9.9 fl (7.4-10.4); Monocytes Absolute Auto 0.8 K/mm3 (0.1-0.6); Monocytes Percent Auto 5.1 % (2.6-8.5); Neutrophils Absolute Auto 13.3 K/mm3 (1.3-6.7); Neutrophils Percent Auto 81.8 % (45.5-73.1); Platelet Count Result 233 k/mm3 (150-375); Red Blood Count 6.46 M/mm3 (4.6-6.20); Red Cell Distribution Width 13.2 % (11.5-14.5); White Blood Count 16.3 K/mm3 (4.5-10.0)
[2022-12-09 06:13] LABS: Alanine Aminotransferase 32 U/L (6-50); Albumin Level 4.6 g/dL (3.5-5.1); Alkaline Phosphatase 82 U/L (38-126); Anion Gap 10 mmol/L (8-16); Aspartate Amino Transferase 24 U/L (17-59); Bilirubin,Total 0.9 mg/dL (0.2-1.3); Blood Urea Nitrogen 14 mg/dL (9-20); Calcium 9.6 mg/dL (8.4-10.2); Carbon Dioxide 30 mmol/L (22-30); Chloride 97 mmol/L (98-107); Estimated CRCL calculation 163 ml/min; Estimated Glomerular Filt Rate > 60; Glucose 131 mg/dL (65-110); Lipase 47 U/L (23-300); Potassium 3.9 mmol/L (3.4-5.0); Sodium 137 mmol/L (137-145)
--- NOTE | 2022-12-09 07:30 | PC.NURSE ---
pt sleeping on stretcher with family at bedside. no distress noted. waiting further orders.
[2022-12-09 10:10] VITALS: BP 159/103; RESP 16
== END 2022-12-09 10:10 | disposition home or self-care (01) ==
PROVIDERS: Emergency Provider Emergency Medicine; PCP Internal Medicine
DX: R10.13 Epigastric pain (principal); F12.90 Cannabis use, unspecified, uncomplicated; E11.9 Type 2 diabetes mellitus without complications; F17.210 Nicotine dependence, cigarettes, uncomplicated
CPT/HCPCS: 36415; 74177; 76705; 80053; 83690; 85025; 96361; 96374; 96375; 99284; J2405; J7030; Q9967

== ENCOUNTER 2023-03-24 08:14 | Emergency (ER) | payer OTHER, SELFPAY ==
--- NOTE | ~2023-03-24 | XR_ITS ---
XR chest 2V DATE: 03/24/2023 08:54 INDICATION: Hemoptysis. Smoker. TECHNIQUE: 2 views COMPARISON: None FINDINGS: Normal heart size. No hilar or mediastinal enlargement. No pulmonary infiltrate or consolid ation, pleural effusion or pulmonary vascular congestion or pneumothorax is detected. IMPRESSION: No active cardiopulmonary disease or significant change since 11/24/2022 Reviewed, dictated and finalized at location L. ER OPERATOR
[2023-03-24 08:22] VITALS: BP 139/75; PULSE 77; RESP 16; TEMP 36.3; O2SAT 98
--- NOTE | 2023-03-24 08:29 | ED.URI ---
HPI - URI/Sore Throat General Chief Complaint: Upper Respiratory Infection Stated Complaint: Coughing Blood Source: patient Mode of arrival: ambulatory Limitations: no limitations History of Present Illness HPI Narrative: 47-year-old male history of diabetes presented for complaint of chest congestion, cough and fatigue, x3 days. Endorses clear sputum with flecks of blood, and noticed more blood to the sputum today. Endorses wheezing, but states he has it at baseline. Has not used his albuterol inhaler. Denies increase in sob, n/v/d/f/c. smokes 2ppd. Related Data Home Medications Medication Instructions Recorded Confirmed tirzepatide 5 mg/0.5 mL mg subcut 11/24/22 subcutaneous pen injector (Marlin) Allergies Allergy/AdvReac Type Severity Reaction Status Date / Time No Known Allergies Allergy Verified 03/24/23 08:28 Review of Systems Review of Systems: CONSTITUTIONAL: Denies body aches, fever, chills, or sweats. ENT: Denies rhinorrhea, congestion, sore throat, or otalgia. CARDIOVASCULAR: Denies chest pain, palpitations, or edema. RESPIRATORY: Reports cough, wheezing. GASTROINTESTINAL: Denies abdominal pain, nausea, vomiting, or diarrhea. SKIN: Denies rash, itching, or wounds. MUSCULOSKELETAL: Denies back pain, joint pain, or myalgia. NEUROLOGIC: Denies headache, numbness, tingling, or weakness. All systems reviewed & are unremarkable except as noted in HPI and below PMFSH Past Medical History Medical History Marijuana use Morbid obesity Tobacco dependence Type 2 diabetes mellitus Surgical History Surgical History Hx of appendectomy Social History Social History Social History: Mr. Mina lives in [place] with his mother and son. He works for [employer]. He smokes 2 packs of cigarettes per day and states that he has done so for 20 years. He smokes approximately 2 grams of marijuana per day. He drinks alcohol once every 2 months and last drank on . He wishes to be a full code and he designates his mom, Debbie Mina, as his surrogate medical decision maker. Smoking packs per day: 2 Smoking cigarettes per day: 40.0 Years smoked: 20 Smoking pack-years: 40.00 Smoking status: Former smoker Tobacco type: cigarettes Substance use: current Substance use type: marijuana Other substance usage details: Pt admits to smoking approximately 2 grams of marijuana per day Living arrangements: with family Gender identity (if verbalized by the patient): Male Spiritual care concerns: No Comments At time of signature, I have reviewed and agree with nursing past medical, surgical, social and family history unless otherwise noted. Please see nursing chart for further information. There is no relevant family history pertinent to the presenting complaint Exam Narrative: GENERAL: mildly ill-appearing, in no acute distress. Obese. EYES: EOMI. No redness or drainage. Conjunctivae normal. ENT: Mucous membranes pink and moist. No rhinorrhea. NECK: Normal AROM. Supple. CHEST: No respiratory distress. Faint wheezing to all kline. HEART: Regular rate and rhythm. No murmur appreciated. EXTREMITIES: Normal range of motion. No edema. SKIN: Warm, dry, no rash. Capillary refill normal. Normal skin turgor. NEURO: Alert and oriented x3. Gait steady. PSYCH: Normal affect. Course Course Emergency Course: Patient is aware of diagnosis, understands and agrees to treatment plan. Anticipatory guidance given. Patient agrees to follow-up as directed and is aware of reasons to seek care at the emergency department. Portions of this record may have been created with voice recognition software Level of Care: Express Care Visit Vital Signs Vital signs: Vital Signs Oxygen
== END 2023-03-24 09:35 | disposition home or self-care (01) ==
PROVIDERS: Emergency Provider Nurse Practitioner Family; PCP Internal Medicine
DX: J40 Bronchitis, not specified as acute or chronic (principal); E66.01 Morbid (severe) obesity due to excess calories; Z68.42 Body mass index [BMI] 45.0-49.9, adult; E11.9 Type 2 diabetes mellitus without complications; F17.210 Nicotine dependence, cigarettes, uncomplicated
CPT/HCPCS: 71046; 99213; G0463

== ENCOUNTER 2023-08-18 06:46 | Emergency (ER) | payer OTHER, SELFPAY ==
--- NOTE | ~2023-08-18 | CT_ITS ---
CT of the Abdomen and Pelvis: Indication: Abdominal pain Technique: 2.5 mm axial scans were obtained through the abdomen and pelvis following intravenous adm inistration of 100 cc of Omnipaque 350. Dose reduction technique was used on this scan by utilizing a utomated exposure control and iterative reconstruction technique. The dose-length product (DLP) was 1 944.93 mGy-cm. COMPARISON: 12/09/2022 Findings: Scans through the lung bases are unremarkable. The liver, spleen, pancreas, gallbladder, right adrenal gland, and kidneys are within normal limits. Stable left adrenal nodule. No evidence of aortic aneurysm. No lymphadenopathy. No bowel obstruction or bowel wall thickening. Fluid-filled bowel loops are present. No evidence for appendicitis. No abscess or free air. Images through the pelvis were performed. Urinary bladder unremarkable. No pelvic mass seen. No ascit es. Impression: Fluid-filled bowel loops could reflect diarrheal illness. Stable left adrenal nodule. Reviewed, dictated and finalized at [facility]. Impression: Fluid-filled bowel loops could reflect diarrheal illness. Stable left adrenal nodule.
[2023-08-18 06:56] VITALS: BP 137/85; PULSE 97; RESP 20; TEMP 36.2; O2SAT 99
[2023-08-18 08:15] LABS: Basophils Absolute Auto 0.1 K/mm3 (0.0-0.1); Basophils Percent Auto 0.7 % (0.2-1.2); Eosinophils Absolute Auto 0.1 K/mm3 (0-0.3); Eosinophils Percent Auto 0.8 % (0-4.4); Hemoglobin 19.8 g/dL (14.0-18.0); Immature Granulocyte Absolute 0.06 K/mm3 (0.00-0.031); Immature Granulocyte Percent A 0.4 % (0-0.5); Lymphocytes Percent Auto 17.5 % (18.3-44.2); Mean Corpuscular HGB Conc 34.7 g/dl (32-36); Mean Corpuscular Hemoglobin 30.8 pg (26-34); Mean Corpuscular Volume 88.8 fl (80-100); Mean Platelet Volume 9.8 fl (7.4-10.4); Monocytes Absolute Auto 0.9 K/mm3 (0.1-0.6); Monocytes Percent Auto 5.5 % (2.6-8.5); Neutrophils Percent Auto 75.1 % (45.5-73.1); Platelet Count Result 212 k/mm3 (150-375); Red Blood Count 6.42 M/mm3 (4.6-6.20)
[2023-08-18] MEDS: FAMOTIDINE 20 MG/2 ML VIAL IV PUSH (08:16)
[2023-08-18] MEDS: SODIUM CHLORIDE 0.9% IV 2,000 ML 999 ML IV CONT (08:16)
[2023-08-18] MEDS: MORPHINE SULFATE (*CRX) 4 MG/ML INJ IV PUSH (08:16)
[2023-08-18] MEDS: ONDANSETRON INJ 4 MG/2 ML VIAL IV PUSH (08:16)
[2023-08-18 08:26] LABS: Alanine Aminotransferase 41 U/L (6-50); Albumin Level 4.6 g/dL (3.5-5.1); Alkaline Phosphatase 78 U/L (38-126); Anion Gap 12 mmol/L (4-12); Aspartate Amino Transferase 36 U/L (17-59); Blood Urea Nitrogen 15 mg/dL (9-20); Calcium 9.3 mg/dL (8.4-10.2); Carbon Dioxide 26 mmol/L (22-30); Chloride 99 mmol/L (98-107); Estimated CRCL calculation 147 ml/min; Estimated Glomerular Filt Rate > 60; Glucose 123 mg/dL (65-110); Lipase 40 U/L (23-300); Potassium 3.8 mmol/L (3.4-5.0); Sodium 137 mmol/L (137-145)
[2023-08-18 08:27] LABS: Magnesium 2.1 mg/dL (1.6-2.3)
[2023-08-18] MEDS: KETOROLAC 30 MG/ML VIAL (*BKC) IV PUSH (09:03)
--- NOTE | 2023-08-18 09:58 | ED.ABDPAIN ---
HPI - Abdominal Pain General Chief Complaint: Abdominal Pain Stated Complaint: abd pain Time Seen by Provider: 08/18/23 07:08 History of Present Illness HPI narrative: This is a 47-year-old male, with history diabetes, who presents to the emergency department complaining of epigastric abdominal pain, nausea, vomiting and diarrhea for the past 4 days. He describes the pain as intermittently sharp and pressure-like. He denies bleeding, fevers or chills. He states he he typically takes famotidine and Zofran but has since run out. He states he has a primary care follow-up appointment in 1 week. He has no other complaints at this time. Related Data Home Medications Medication Instructions Recorded Confirmed tirzepatide 5 mg/0.5 mL mg subcut 11/24/22 subcutaneous pen injector (Mounjaro) Allergies Allergy/AdvReac Type Severity Reaction Status Date / Time No Known Allergies Allergy Verified 08/18/23 06:47 Review of Systems Review of Systems: All systems reviewed & are unremarkable except as noted in HPI and below PMFSH Past Medical History Medical History Marijuana use Morbid obesity Tobacco dependence Type 2 diabetes mellitus Surgical History Surgical History Hx of appendectomy Social History Social History Social History: Mr. Mina lives in [place] with his mother and son. He works for [employer]. He smokes 2 packs of cigarettes per day and states that he has done so for 20 years. He smokes approximately 2 grams of marijuana per day. He drinks alcohol once every 2 months and last drank on . He wishes to be a full code and he designates his mom, Debbie Mina, as his surrogate medical decision maker. Smoking packs per day: 2 Smoking cigarettes per day: 40.0 Years smoked: 20 Smoking pack-years: 40.00 Smoking status: Former smoker Tobacco type: cigarettes Substance use: current Substance use type: marijuana Other substance usage details: Pt admits to smoking approximately 2 grams of marijuana per day Living arrangements: with family Gender identity (if verbalized by the patient): Male Spiritual care concerns: No Exam Narrative: GENERAL: Well-developed, well-nourished, and in no acute distress. HEAD: Normocephalic, atraumatic. EYES: PERRLA and EOMI. CHEST: Clear to auscultation. No respiratory distress. No wheezes rales or rhonchi HEART: Regular rate and rhythm. No murmur heard. Normal peripheral pulses. ABDOMEN: Soft, left upper quadrant tenderness to palpation, without rebound or guarding, nondistended, normal active bowel sounds. EXTREMITIES: Normal range of motion. No edema. SKIN: Warm, dry, no rash. NEURO: Alert and oriented x3. No focal deficit. Moving all 4 limbs spontaneously PSYCH: Normal mood and affect. Course Course Emergency Course: 10:00 - CBC demonstrates white blood cell count elevation of 16 with hemoglobin of 19.8 and platelets of 212. The patient's white blood cell count has been elevated to this degree previously. The patient's hemoglobin has been elevated to 19 previously. Chemistries unremarkable, including a lipase of 40. CT abdomen pelvis demonstrates changes consistent with viral enteritis but is not otherwise concerning for infection, mass or obstruction. The patient's pain nearly completely resolved with IV Toradol. The patient was able to tolerate p.o. intake without difficulty. Will discharge with pain medications, famotidine and Zofran. I discussed the findings and recommendations with the patient. Discussed return and emergency precautions including signs/symptoms of acute abdomen and intractable vomiting. The patient voiced understanding and agreement with the plan. All questions answered to his satisfaction. Vital Signs Vital signs:
== END 2023-08-18 11:07 | disposition home or self-care (01) ==
PROVIDERS: Emergency Provider Preventive Medicine Aerospace Medicine; PCP Internal Medicine
DX: K52.9 Noninfective gastroenteritis and colitis, unspecified (principal); E11.9 Type 2 diabetes mellitus without complications; E66.01 Morbid (severe) obesity due to excess calories; Z68.41 Body mass index [BMI] 40.0-44.9, adult; F17.210 Nicotine dependence, cigarettes, uncomplicated; E27.8 Other specified disorders of adrenal gland; Z79.85 Long-term (current) use of injectable non-insulin antidiabetic drugs
CPT/HCPCS: 36415; 74177; 80053; 83690; 83735; 85025; 96361; 96374; 96375; 99284; J1885; J2270; J2405; J7030; Q9967

== ENCOUNTER 2023-09-03 01:22 | Emergency (ER) | payer OTHER, SELFPAY ==
--- NOTE | ~2023-09-03 | CT_ITS ---
EXAMINATION: CT abdomen pelvis w con DATE: 09/03/2023 03:56 INDICATION: Abdomen pain for 2 weeks TECHNIQUE: Computed tomography (CT) of the abdomen and pelvis was performed with 100 cc Omnipaque 350 intravenous contrast. The dose-length product was 1973.03 mGy-cm. Automated exposure control and ite rative reconstruction technique were employed. COMPARISON: CT dated 08/18/2023. FINDINGS: Lung bases unremarkable. There is dependent atelectasis. Heart size normal. No significant pleural or pericardial effusion. The liver, spleen, pancreas, right adrenal gland and kidneys are unr emarkable. There is a 2.6 x 1.7 cm left adrenal mass, stable, statistically likely benign adenoma. Ga llbladder is present. There are fluid-filled distended small bowel loops throughout the abdomen witho ut definitive transition point, likely ileus. No free air or free fluid. No significant vascular abno rmality. No lymphadenopathy. Gallbladder is present. IMPRESSION: 1. Persistent fluid-filled small bowel, likely ileus. Reviewed, dictated and finalized at location B.
[2023-09-03 01:26] VITALS: BP 193/97; PULSE 81; RESP 18; TEMP 36.7; O2SAT 99
[2023-09-03 01:54] VITALS: BP 188/94; PULSE 79; RESP 14; TEMP 37; O2SAT 97
[2023-09-03 02:10] LABS: Basophils Absolute Auto 0.1 K/mm3 (0.0-0.1); Basophils Percent Auto 0.6 % (0.2-1.2); Eosinophils Absolute Auto 0.1 K/mm3 (0-0.3); Eosinophils Percent Auto 0.7 % (0-4.4); Hematocrit 55.2 % (42.0-52.0); Hemoglobin 19.2 g/dL (14.0-18.0); Immature Granulocyte Absolute 0.06 K/mm3 (0.00-0.031); Immature Granulocyte Percent A 0.4 % (0-0.5); Lymphocytes Absolute Auto 1.21 K/mm3 (0.9-3.2); Mean Corpuscular HGB Conc 34.8 g/dl (32-36); Mean Corpuscular Hemoglobin 30.7 pg (26-34); Mean Corpuscular Volume 88.2 fl (80-100); Mean Platelet Volume 9.7 fl (7.4-10.4); Monocytes Absolute Auto 0.5 K/mm3 (0.1-0.6); Monocytes Percent Auto 3.8 % (2.6-8.5); Neutrophils Absolute Auto 11.5 K/mm3 (1.3-6.7); Neutrophils Percent Auto 85.5 % (45.5-73.1); Platelet Count Result 196 k/mm3 (150-375); Red Blood Count 6.26 M/mm3 (4.6-6.20); Red Cell Distribution Width 12.5 % (11.5-14.5); White Blood Count 13.4 K/mm3 (4.5-10.0)
[2023-09-03 02:50] LABS: Alanine Aminotransferase 29 U/L (6-50); Albumin Level 4.2 g/dL (3.5-5.1); Alkaline Phosphatase 82 U/L (38-126); Anion Gap 12 mmol/L (4-12); Aspartate Amino Transferase 25 U/L (17-59); Bilirubin,Total 0.9 mg/dL (0.2-1.3); Blood Urea Nitrogen 11 mg/dL (9-20); Calcium 9.1 mg/dL (8.4-10.2); Carbon Dioxide 25 mmol/L (22-30); Chloride 99 mmol/L (98-107); Estimated CRCL calculation 162 ml/min; Estimated Glomerular Filt Rate > 60; Glucose 134 mg/dL (65-110); Lipase 40 U/L (23-300); Sodium 136 mmol/L (137-145)
--- NOTE | 2023-09-03 03:21 | ED.ABDPAIN ---
HPI - Abdominal Pain General Chief Complaint: Abdominal Pain Stated Complaint: abd Time Seen by Provider: 09/03/23 03:13 Source: patient Mode of arrival: ambulatory Limitations: no limitations History of Present Illness HPI narrative: Patient presents with abdominal pain of 2 weeks duration and worsening last night. He reports nausea and 1 episode of vomiting. The pain is like a cramping at his epigastrium and in the right upper quadrant. Patient is on Monjaro. He uses marijuana nearly daily. No sick contacts. He has had prior abdominal surgery with removal of appendix. He states he has seen a chemical plant technical director before but does not regularly follow with 1. Denies any prior colonoscopy or EGD. No fevers. No palliative or provoking factors though he has tried Tylenol, famotidine, and Zofran. Related Data Home Medications Medication Instructions Recorded Confirmed tirzepatide 5 mg/0.5 mL mg subcut 11/24/22 subcutaneous pen injector (Mounjaro) Allergies Allergy/AdvReac Type Severity Reaction Status Date / Time No Known Allergies Allergy Verified 09/03/23 01:23 [facility] Past Medical History Medical History Marijuana use Morbid obesity Tobacco dependence Type 2 diabetes mellitus Surgical History Surgical History Hx of appendectomy Social History Social History (Updated 09/04/23 @ 18:33 by Jemima Nolen MD) Social History: Mr. Mina lives in [place] with his mother and son and grandson. He works for [employer]. He smokes 2 packs of cigarettes per day and states that he has done so for 20 years. He smokes approximately 2 grams of marijuana per day. He drinks alcohol once every 2 months and last drank on . He wishes to be a full code and he designates his mom, Debbie Mina, as his surrogate medical decision maker. Smoking packs per day: 2 Smoking cigarettes per day: 40.0 Years smoked: 20 Smoking pack-years: 40.00 Smoking status: Former smoker Tobacco type: cigarettes Substance use: current Substance use type: marijuana Other substance usage details: Pt admits to smoking approximately 2 grams of marijuana per day Living arrangements: with family Gender identity (if verbalized by the patient): Male Spiritual care concerns: No Exam Narrative: GENERAL: Well-appearing, well-nourished HEAD: Normocephalic, atraumatic. EYES: Non injected, non icteric ENT: Nares clear, no rhinorrhea or epistaxis. NECK: Supple. CHEST: Speaking in full sentences. No respiratory distress. HEART: Regular rate and rhythm. . ABDOMEN: Soft, nondistended. Post sign positive. No rigidity or guarding. Obese. EXTREMITIES: Normal range of motion. No edema. SKIN: Warm, dry, no rash. NEURO: No focal deficits. Alert and oriented x3. PSYCH: Normal mood and affect. Course Vital Signs Vital signs: Vital Signs Temperature 98.0 F 09/03/23 01:26 Pulse Rate 81 09/03/23 01:26 Respiratory Rate 18 09/03/23 01:26 Blood Pressure 193/97 H 09/03/23 01:26 Pulse Oximetry 99 09/03/23 01:26 Oxygen Delivery Room Air 09/03/23 01:26 Temperature 98.6 F 09/03/23 01:54 Pulse Rate 74 09/03/23 05:07 Respiratory Rate 15 09/03/23 05:07 Blood Pressure 172/96 H 09/03/23 05:07 Pulse Oximetry 100 09/03/23 05:07 Oxygen Delivery Room Air 09/03/23 01:54 MDM - Abdominal Pain MDM Narrative Medical decision making narrative: Patient presents with epigastric and right upper quadrant abdominal pain for the past 2 weeks but worsening last night. He has a cell had nausea and vomiting. Patient presents with this not infrequently. In the emergency department he is afebrile with vital signs notable for hypertension. He is Post sign positive on exam. Patient reassessed at 5:20 a.m.. He reports pain is improving but is
[2023-09-03] MEDS: MORPHINE SULFATE (*CRX) 4 MG/ML INJ IV PUSH (03:33)
[2023-09-03] MEDS: SODIUM CHLORIDE 0.9% IV 1,000 ML 999 ML IV CONT (03:33)
[2023-09-03] MEDS: ONDANSETRON INJ 4 MG/2 ML VIAL IV PUSH (03:33)
[2023-09-03 05:07] VITALS: BP 172/96; PULSE 74; RESP 15; O2SAT 100
[2023-09-03] MEDS: KETOROLAC 15 MG/ML VIAL (*BKC) IV PUSH (05:28)
[2023-09-03 05:37] LABS: Influenza A QL RT-PCR Negative (Negative); Influenza B QL RT-PCR Negative (Negative); SARS-CoV-2 RNA PCR Negative (Negative)
[2023-09-03] MEDS: diphenhydrAMINE HCl INJ 50 MG/ML VIAL 25 MG IV PUSH (05:55)
[2023-09-03] MEDS: HALOPERIDOL LACTATE 5 MG/ML VIAL IV PUSH (05:57)
[2023-09-03 06:10] LABS: Appearance Urine Clear (Clear); Bacteria Urine None Seen /hpf; Bilirubin Urine Negative (Negative); Blood Urine Negative (Negative); Color Urine Yellow (Yellow); Glucose Urine UA Negative (Negative); Ketones Urine 2+ mg/dL (Negative); Leukocyte Esterase Ur Negative LEU/UL (Negative); Nitrate Urine Negative (Negative); Non Pathogenic Casts 0-2; Protein Urine 1+ mg/dL (Negative); RBC Urine 0-2 /hpf (0-2); Specific Grav Ur 1.042 (1.001-1.035); Squamous Epithelial Cell Urine None Seen /hpf (Few); WBC Urine 0-5 /hpf (0-3); pH Urine 6.5 (5.0-9.0)
[2023-09-03 06:11] LABS: Add Urine Microscopic? YES
== END 2023-09-03 06:35 | disposition home or self-care (01) ==
PROVIDERS: Emergency Provider Student in an Organized Health Care Education/Training Program; PCP Internal Medicine
DX: R82.4 Acetonuria (principal); K52.9 Noninfective gastroenteritis and colitis, unspecified; E11.9 Type 2 diabetes mellitus without complications; Z87.891 Personal history of nicotine dependence; Z20.822 Contact with and (suspected) exposure to COVID-19
CPT/HCPCS: 36415; 74177; 80053; 81001; 83690; 85025; 87636; 96361; 96374; 96375; 99284; J1200; J1630; J1885; J2270; J2405; J7030; Q9967